=== PATIENT | male | born 1995 | race Caucasian/White ===

== ENCOUNTER → 2021-12-06 09:41 | Outpatient (BNVA) | payer OTHER, SELFPAY | PROVIDERS: Visit Provider Nurse Practitioner Psychiatric/Mental Health | DX: F11.90 Opioid use, unspecified, uncomplicated (principal); Z51.81 Encounter for therapeutic drug level monitoring | CPT/HCPCS: 80305; 99202 ==

== ENCOUNTER → 2021-12-13 09:57 | Outpatient (BNVA) | payer SELFPAY | PROVIDERS: Visit Provider Nurse Practitioner Psychiatric/Mental Health | DX: F11.20 Opioid dependence, uncomplicated (principal); Z51.81 Encounter for therapeutic drug level monitoring; Z79.899 Other long term (current) drug therapy | CPT/HCPCS: 80305; 99212 ==

== ENCOUNTER → 2021-12-20 11:03 | Outpatient (BNVA) | payer OTHER, SELFPAY | PROVIDERS: Visit Provider Nurse Practitioner Psychiatric/Mental Health | DX: F11.20 Opioid dependence, uncomplicated (principal); Z51.81 Encounter for therapeutic drug level monitoring; Z79.899 Other long term (current) drug therapy | CPT/HCPCS: 99212 ==

== ENCOUNTER → 2022-01-03 10:56 | Outpatient (BNVA) | payer MEDICAID, SELFPAY | PROVIDERS: Visit Provider Nurse Practitioner Psychiatric/Mental Health | DX: F11.20 Opioid dependence, uncomplicated (principal); Z51.81 Encounter for therapeutic drug level monitoring; Z79.899 Other long term (current) drug therapy | CPT/HCPCS: 99212 ==

== ENCOUNTER → 2022-01-22 11:02 | Outpatient (BNVA) | payer SELFPAY | PROVIDERS: Visit Provider Nurse Practitioner Psychiatric/Mental Health | DX: Z51.81 Encounter for therapeutic drug level monitoring (principal); F11.20 Opioid dependence, uncomplicated | CPT/HCPCS: 80305; 99212 ==

== ENCOUNTER → 2022-02-05 11:11 | Outpatient (BNVA) | payer SELFPAY | PROVIDERS: Visit Provider Nurse Practitioner Psychiatric/Mental Health | DX: Z51.81 Encounter for therapeutic drug level monitoring (principal); F11.20 Opioid dependence, uncomplicated | CPT/HCPCS: 80305; 99212 ==

== ENCOUNTER → 2022-02-19 11:06 | Outpatient (BNVA) | payer OTHER, SELFPAY | PROVIDERS: Visit Provider Nurse Practitioner Psychiatric/Mental Health | DX: Z51.81 Encounter for therapeutic drug level monitoring (principal); F11.20 Opioid dependence, uncomplicated | CPT/HCPCS: 80305; 99212 ==

== ENCOUNTER → 2022-03-05 11:26 | Outpatient (BNVA) | payer OTHER, SELFPAY | PROVIDERS: Visit Provider Nurse Practitioner Psychiatric/Mental Health | DX: Z51.81 Encounter for therapeutic drug level monitoring (principal); F11.20 Opioid dependence, uncomplicated | CPT/HCPCS: 80305; 99212 ==

== ENCOUNTER → 2022-03-19 10:58 | Outpatient (BNVA) | payer OTHER, SELFPAY | PROVIDERS: Visit Provider Nurse Practitioner Psychiatric/Mental Health | DX: Z51.81 Encounter for therapeutic drug level monitoring (principal); F11.20 Opioid dependence, uncomplicated | CPT/HCPCS: 99212 ==

== ENCOUNTER → 2022-04-02 11:13 | Outpatient (BNVA) | payer OTHER, SELFPAY | PROVIDERS: Visit Provider Nurse Practitioner Psychiatric/Mental Health | DX: F11.20 Opioid dependence, uncomplicated (principal) | CPT/HCPCS: 99212 ==

== ENCOUNTER → 2022-04-23 11:17 | Outpatient (BNVA) | payer OTHER, SELFPAY | PROVIDERS: Visit Provider Nurse Practitioner Psychiatric/Mental Health | DX: F11.20 Opioid dependence, uncomplicated (principal) | CPT/HCPCS: 99212 ==

== ENCOUNTER → 2022-05-15 11:17 | Outpatient (BNVA) | payer OTHER, SELFPAY | PROVIDERS: Visit Provider Nurse Practitioner Psychiatric/Mental Health | DX: F11.20 Opioid dependence, uncomplicated (principal) | CPT/HCPCS: 80305; 99212 ==

== ENCOUNTER → 2022-06-14 11:24 | Outpatient (BNVA) | payer OTHER, SELFPAY | PROVIDERS: Visit Provider Nurse Practitioner Psychiatric/Mental Health | DX: Z51.81 Encounter for therapeutic drug level monitoring (principal); F11.20 Opioid dependence, uncomplicated | CPT/HCPCS: 99212 ==

== ENCOUNTER → 2022-07-12 11:37 | Outpatient (BNVA) | payer OTHER, SELFPAY | PROVIDERS: Visit Provider Nurse Practitioner Psychiatric/Mental Health | DX: Z51.81 Encounter for therapeutic drug level monitoring (principal); F11.20 Opioid dependence, uncomplicated | CPT/HCPCS: 80305; 99212 ==

== ENCOUNTER → 2022-08-21 11:08 | Outpatient (BNVA) | payer OTHER, SELFPAY | PROVIDERS: Visit Provider Nurse Practitioner Psychiatric/Mental Health | DX: Z51.81 Encounter for therapeutic drug level monitoring (principal); F11.20 Opioid dependence, uncomplicated | CPT/HCPCS: 80305; 99212 ==

== ENCOUNTER → 2022-09-18 11:11 | Outpatient (BNVA) | payer OTHER, SELFPAY | PROVIDERS: Visit Provider Nurse Practitioner Psychiatric/Mental Health | DX: Z51.81 Encounter for therapeutic drug level monitoring (principal); F11.20 Opioid dependence, uncomplicated | CPT/HCPCS: 80305; 99212 ==

== ENCOUNTER → 2022-10-22 10:03 | Outpatient (BNVA) | payer OTHER, SELFPAY | PROVIDERS: Visit Provider Nurse Practitioner Psychiatric/Mental Health | DX: Z51.81 Encounter for therapeutic drug level monitoring (principal); F11.20 Opioid dependence, uncomplicated | CPT/HCPCS: 80305; 99212 ==

== ENCOUNTER 2022-11-29 14:56 | Outpatient (AMB) | payer OTHER, SELFPAY ==
--- NOTE | 2022-11-29 14:56 | A.OFFVIS_ITS ---
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 Required: No Allergies No Known Allergies Allergy (Unverified 11/29/22 14:58) Do you need a note to return to daycare/school/sports/work: No HPI MAT Visit HPI Details Pt presents for OUD treatment follow up Currently being prescribed Suboxone 8mg QD Denies any side effects related to medication Has moved into new apt., happy with his new place Review of Systems Const Reports as per HPI and Reports no additional complaints Physical Exam Vital Signs: Last Vital Signs Pulse 76 11/29/22 15:04 BP 126/82 11/29/22 15:04 Pulse Ox 97 11/29/22 15:04 Oxygen Delivery Method Room Air 11/29/22 15:04 Const General: cooperative, healthy appearing and no acute distress Skin General skin exam: no rashes or lesions noted Psych Appearance: well kempt Speech and movement: Clear speech present Thought process: Normal thought process present Thought content: Normal thought content present Insight: Good insight present (Psych) Assessment & Plan Assessment & Plan (1) Opioid use disorder: Code(s): F11.90 - Opioid use, unspecified, uncomplicated Plan: * continue suboxone at current dose * relapse prevention discussion * lynette stevens 4 weeks Orders: Orders AMB 14 Panel Urine Drug Screen 11/29/22 Z51.81 - Encounter for therapeutic drug level monitoring Medications: Refilled buprenorphine-naloxone 8-2 mg (Suboxone) 1 film sublingual DAILY 30 ea 0RF Coding Level of Care Code Est Pt Level 3 (23324) Diagnoses Opioid use disorder F11.90
[2022-11-29 15:04] VITALS: BP 126/82; PULSE 76; O2SAT 97
== END 2022-11-29 15:31 | disposition home or self-care (01) ==
LOC: HO.HCC 14:56
PROVIDERS: Visit Provider Nurse Practitioner Psychiatric/Mental Health
DX: Z51.81 Encounter for therapeutic drug level monitoring (principal)
CPT/HCPCS: 99213

== ENCOUNTER → 2022-11-29 14:56 | Outpatient (BNVA) | payer OTHER, SELFPAY | PROVIDERS: Visit Provider Nurse Practitioner Psychiatric/Mental Health | DX: Z51.81 Encounter for therapeutic drug level monitoring (principal); F11.20 Opioid dependence, uncomplicated | CPT/HCPCS: 80305; 99212 ==

== ENCOUNTER 2023-01-14 10:55 | Outpatient (AMB) | payer OTHER, SELFPAY ==
--- NOTE | 2023-01-14 11:05 | MHC.OFFVIS ---
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 Doing well with current dose. Patient reflecting on how his children are doing in school--he feels positive about the improvement in their behavior. 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 Review of Systems Const Reports as per HPI and Reports no additional complaints Physical Exam Vital Signs: Last Vital Signs Pulse 74 01/14/23 11:13 BP 128/70 01/14/23 11:13 Pulse Ox 96 01/14/23 11:13 Oxygen Delivery Method Room Air 01/14/23 11:13 Const General: cooperative, healthy appearing and no acute distress Skin General skin exam: no rashes or lesions noted Psych Appearance: well kempt Speech and movement: Clear speech present Thought process: Normal thought process present Thought content: Normal thought content present Insight: Good insight present (Psych) Results AMB 14 Panel Urine Drug Screen Urine Marijuana (THC) Positive Last Edit by Gabriella Paulino CMA on 01/14/23 11:14 Urine Cocaine Negative Last Edit by Gabriella Paulino CMA on 01/14/23 11:14 Urine Morphine Negative Last Edit by Gabriella Paulino CMA on 01/14/23 11:14 Urine Methamphetamine Negative Last Edit by Gabriella Paulino CMA on 01/14/23 11:14 Urine Amphetamine Negative Last Edit by Gabriella Paulino CMA on 01/14/23 11:14 Urine Benzodiazepine Negative Last Edit by Gabriella Paulino CMA on 01/14/23 11:14 Urine Barbiturates Negative Last Edit by Gabriella Paulino CMA on 01/14/23 11:14 Urine Methadone Negative Last Edit by Gabriella Paulino CMA on 01/14/23 11:14 Urine Buprenorphine Positive Last Edit by Gabriella Paulino CMA on 01/14/23 11:14 Urine Tricyclic Antidepressant Negative Last Edit by Gabriella Paulino CMA on 01/14/23 11:14 Urine MDMA Negative Last Edit by Gabriella Paulino CMA on 01/14/23 11:14 Urine Oxycodone Negative Last Edit by Gabriella Paulino CMA on 01/14/23 11:14 Urine Phencyclidine Negative Last Edit by Gabriella Paulino CMA on 01/14/23 11:14 Urine Propoxyphene Negative Last Edit by Gabriella Paulino CMA on 01/14/23 11:14 Results Reviewed Results Reviewed: Laboratory Last Values POC Urine Buprenorphine Positive 01/14/23 11:08 POC Urine Morphine Negative 01/14/23 11:08 POC Urine Oxycodone Negative 01/14/23 11:08 POC Urine Methadone Negative 01/14/23 11:08 POC Urine Propoxyphene Negative 01/14/23 11:08 POC Urine Barbiturates Negative 01/14/23 11:08 POC U Tricyclic Antidpr Negative 01/14/23 11:08 POC Urine PCP Negative 01/14/23 11:08 POC Ur Amphetamines Negative 01/14/23 11:08 POC Ur Methamphetamine Negative 01/14/23 11:08 POC Urine MDMA Negative 01/14/23 11:08 POC Ur Benzodiazepine Negative 01/14/23 11:08 POC Urine Cocaine Negative 01/14/23 11:08 POC Ur Marijuana (THC) Positive 01/14/23 11:08 Assessment & Plan Assessment & Plan (1) Opioid use disorder: Code(s): F11.90 - Opioid use, unspecified, uncomplicated Plan: continue suboxone at current dose relapse prevention discussion follow up 6 weeks Orders: Orders AMB 14 Panel Urine Drug Screen Today Z51.81 - Encounter for therapeutic drug level monitoring Medications: Refilled buprenorphine-naloxone 8-2 mg (Suboxone) 1 film sublingual DAILY 22 ea 1RF Discontinued prazosin Discontinued Reason: Patient no longer taking 1 mg PO BEDTIME 30 caps 3RF hydroxyzine HCl Discontinued Reason: Patient no longer taking 50 mg PO BEDTIME 30 tabs 3RF Coding Level of Care Code Est Pt Level 3 (37877) Diagnoses Opioid use disorder F11.90
[2023-01-14 11:13] VITALS: BP 128/70; PULSE 74; O2SAT 96
== END 2023-01-14 11:30 | disposition home or self-care (01) ==
LOC: HO.HCC 10:56
PROVIDERS: Visit Provider Nurse Practitioner Psychiatric/Mental Health
DX: F11.90 Opioid use, unspecified, uncomplicated (principal); Z51.81 Encounter for therapeutic drug level monitoring
CPT/HCPCS: 99213

== ENCOUNTER → 2023-01-14 10:55 | Outpatient (BNVA) | payer OTHER, SELFPAY | PROVIDERS: Visit Provider Nurse Practitioner Psychiatric/Mental Health | DX: F11.20 Opioid dependence, uncomplicated (principal) | CPT/HCPCS: 80305; 99212 ==

== ENCOUNTER 2023-03-01 09:44 | Outpatient (AMB) | payer OTHER, SELFPAY ==
--- NOTE | 2023-03-01 09:56 | A.OFFVIS_ITS ---
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 Required: No Allergies No Known Allergies Allergy (Unverified 03/01/23 10:00) Do you need a note to return to daycare/school/sports/work: No HPI MAT Visit HPI Details Patient presents for follow up Currently prescribed suboxone 8mg daily Started GED classes at [employer] [employer] 4 days per week Enjoying it, doing well with recovery Review of Systems Const Reports as per HPI and Reports no additional complaints Physical Exam Vital Signs: Last Vital Signs Pulse 77 03/01/23 09:59 BP 124/78 03/01/23 09:59 Pulse Ox 98 03/01/23 09:59 Oxygen Delivery Method Room Air 03/01/23 09:59 Const General: cooperative, healthy appearing and no acute distress Skin General skin exam: no rashes or lesions noted Psych Appearance: well kempt Speech and movement: Clear speech present Thought process: Normal thought process present Thought content: Normal thought content present Insight: Good insight present (Psych) Assessment & Plan Assessment & Plan (1) Opioid use disorder: Code(s): F11.90 - Opioid use, unspecified, uncomplicated Plan: * continue suboxone at current dose * relapse prevention discussion * follow up 6 weeks Coding Level of Care Code Est Pt Level 3 (97507) Diagnoses Opioid use disorder F11.90
[2023-03-01 09:59] VITALS: BP 124/78; PULSE 77; O2SAT 98
== END 2023-03-01 10:28 | disposition home or self-care (01) ==
PROVIDERS: Visit Provider Nurse Practitioner Psychiatric/Mental Health
DX: F11.90 Opioid use, unspecified, uncomplicated (principal)
CPT/HCPCS: 99213

== ENCOUNTER → 2023-03-01 09:44 | Outpatient (BNVA) | payer OTHER, SELFPAY | PROVIDERS: Visit Provider Nurse Practitioner Psychiatric/Mental Health | DX: F11.20 Opioid dependence, uncomplicated (principal); Z51.81 Encounter for therapeutic drug level monitoring; Z79.899 Other long term (current) drug therapy | CPT/HCPCS: 99212 ==

== ENCOUNTER 2023-04-19 10:38 | Outpatient (AMB) | payer OTHER, SELFPAY ==
--- NOTE | 2023-04-19 10:45 | A.OFFVIS_ITS ---
Intake Vital Signs 04/19/23 10:51 BP 110/72 Blood Pressure Location Lt radial Position Sitting Pulse 90 Pulse Source Pulse Oximeter Pulse Oximetry (%) 97 Oxygen Delivery Method Room Air Intake Visit Reasons: MAT Visit Intake Note: the patient presents for a mat visit Fleece Tier Required: No Allergies No Known Allergies Allergy (Unverified 04/19/23 10:45) Do you need a note to return to daycare/school/sports/work: No HPI MAT Visit HPI Details Patient presents for OUD treatment follow up Started school in February. Doing well in his classes. States Reporting increasing anxiety, depression and nightmares He feels this time of year is challenging due to many family members and friends that have passed over time Requesting to restart sertraline and clonidine [facility] Medical History (Updated 04/19/23 @ 14:41 by Roxann Zayas CNP) Opioid use disorder Review of Systems Const Reports as per HPI and Reports difficulty sleeping Physical Exam Vital Signs: Last Vital Signs Pulse 90 04/19/23 10:51 BP 110/72 04/19/23 10:51 Pulse Ox 97 04/19/23 10:51 Oxygen Delivery Method Room Air 04/19/23 10:51 Const General: cooperative and healthy appearing Assessment & Plan Assessment & Plan (1) Opioid use disorder, severe, in sustained remission: Code(s): F11.21 - Opioid dependence, in remission Plan: * continue suboxone at current dose * clonidine 1/2 tab during the day and one tab at bedtime * sertraline 25mg daily for one week then increase to one tab daily * lynette stevens 6 weeks * RN to follow up in 2 weeks via phone regarding medication changes Medications: New clonidine HCl 0.1 mg orally take 1/2 tab in the morning and a full tab in evening; 45 tabs 0RF sertraline take 1/2 tab daily for one week then increase to one full tab daily 50 mg PO DAILY 30 tabs 0RF buprenorphine-naloxone 8-2 mg (Suboxone) 1 film buccal DAILY 22 ea 1RF Discontinued buprenorphine-naloxone 8-2 mg (Suboxone) Discontinued Reason: Duplicate 1 film sublingual DAILY 22 ea 1RF Coding Level of Care Code Est Pt Level 4 (63596) Diagnoses Opioid use disorder, severe, in sustained remission F11.21
[2023-04-19 10:51] VITALS: BP 110/72; PULSE 90; O2SAT 97
== END 2023-04-19 11:47 | disposition home or self-care (01) ==
PROVIDERS: Visit Provider Nurse Practitioner Psychiatric/Mental Health
DX: F11.21 Opioid dependence, in remission (principal)
CPT/HCPCS: 99214

== ENCOUNTER → 2023-04-19 10:38 | Outpatient (BNVA) | payer OTHER, SELFPAY | PROVIDERS: Visit Provider Nurse Practitioner Psychiatric/Mental Health | DX: F11.21 Opioid dependence, in remission (principal) | CPT/HCPCS: 99212 ==

== ENCOUNTER 2023-06-28 13:58 | Outpatient (AMB) | payer OTHER, SELFPAY ==
[2023-06-28 14:03] VITALS: BP 145/90; PULSE 100; O2SAT 99
--- NOTE | 2023-06-28 14:03 | A.OFFVISCC_ITS ---
Intake Vital Signs 06/28/23 14:03 BP 145/90 H Blood Pressure Location Lt brachial Position Sitting Pulse 100 Pulse Oximetry (%) 99 Oxygen Delivery Method Room Air Intake Visit Reasons: MAT Visit Allergies No Known Allergies Allergy (Unverified 04/19/23 10:45) HPI MAT Visit HPI Details Patient presents for follow up Missed last appt Reports things are going well, still taking all medications and requesting refills today [facility] Medical History (Updated 04/19/23 @ 14:41 by Roxann Zayas CNP) Opioid use disorder Review of Systems Const Reports as per HPI and Reports no additional complaints Physical Exam Vital Signs: Last Vital Signs Pulse 100 06/28/23 14:03 BP 145/90 H 06/28/23 14:03 Pulse Ox 99 06/28/23 14:03 Oxygen Delivery Method Room Air 06/28/23 14:03 Const General: cooperative and healthy appearing Assessment & Plan Assessment & Plan (1) Opioid use disorder, severe, in sustained remission: Code(s): F11.21 - Opioid dependence, in remission Plan: * continue suboxone at current dose * clonidine 1/2 tab during the day and one tab at bedtime * sertraline 25mg daily for one week then increase to one tab daily * follow up 2 weeks Medications: Refilled clonidine HCl 0.1 mg orally take 1/2 tab in the morning and a full tab in evening; 45 tabs 3RF buprenorphine-naloxone 8-2 mg (Suboxone) 1 film buccal DAILY 22 ea 0RF Coding Level of Care Code Est Pt Level 3 (31755) Diagnoses Opioid use disorder, severe, in sustained remission F11.21
== END 2023-06-28 14:33 | disposition home or self-care (01) ==
PROVIDERS: Visit Provider Nurse Practitioner Psychiatric/Mental Health
DX: F11.21 Opioid dependence, in remission (principal)
CPT/HCPCS: 99213

== ENCOUNTER → 2023-06-28 13:58 | Outpatient (BNVA) | payer OTHER, SELFPAY | PROVIDERS: Visit Provider Nurse Practitioner Psychiatric/Mental Health | DX: F11.21 Opioid dependence, in remission (principal) | CPT/HCPCS: 99212 ==

== ENCOUNTER 2023-08-12 09:51 | Outpatient (AMB) | payer OTHER, SELFPAY ==
--- NOTE | 2023-08-12 09:52 | A.OFFVISCC_ITS ---
Intake Vital Signs 08/12/23 09:54 Blood Pressure Location Lt brachial Position Sitting Respiration 20 Pulse 88 Pulse Source Pulse Oximeter Pulse Oximetry (%) 98 Oxygen Delivery Method Room Air Intake Visit Reasons: MAT Allergies No Known Allergies Allergy (Unverified 04/19/23 10:45) HPI MAT HPI Details Patient presents for follow up Lost insurance for a month--all set now No issues related to recovery--was able to obtain films Will be moving into his own apt this week. Briefly shared some relationship issues. Feels grounded in his recovery--strong network. [facility] Medical History (Updated 04/19/23 @ 14:41 by Roxann Zayas CNP) Opioid use disorder Review of Systems Const Reports as per HPI Physical Exam Vital Signs: Last Vital Signs Pulse 88 08/12/23 09:54 Resp 20 08/12/23 09:54 Pulse Ox 98 08/12/23 09:54 Oxygen Delivery Method Room Air 08/12/23 09:54 Const General: cooperative and healthy appearing Assessment & Plan Assessment & Plan (1) Opioid use disorder, severe, in sustained remission: Code(s): F11.21 - Opioid dependence, in remission Plan: * continue suboxone at current dose * sertraline and clonidine refilled Medications: Refilled sertraline 50 mg PO DAILY 90 tabs 0RF clonidine HCl 0.1 mg orally take 1/2 tab in the morning and a full tab in evening; 45 tabs 3RF buprenorphine-naloxone 8-2 mg (Suboxone) 1 film buccal DAILY 30 ea 0RF Coding Level of Care Code Est Pt Level 3 (33003) Diagnoses Opioid use disorder, severe, in sustained remission F11.21
[2023-08-12 09:54] VITALS: PULSE 88; RESP 20; O2SAT 98
== END 2023-08-12 10:16 | disposition home or self-care (01) ==
PROVIDERS: Visit Provider Nurse Practitioner Psychiatric/Mental Health
DX: F11.21 Opioid dependence, in remission (principal)
CPT/HCPCS: 99213

== ENCOUNTER → 2023-08-12 09:51 | Outpatient (BNVA) | payer OTHER, SELFPAY | PROVIDERS: Visit Provider Nurse Practitioner Psychiatric/Mental Health | DX: F11.21 Opioid dependence, in remission (principal); Z79.899 Other long term (current) drug therapy; Z51.81 Encounter for therapeutic drug level monitoring | CPT/HCPCS: 99212 ==

== ENCOUNTER 2023-09-09 09:48 | Outpatient (AMB) | payer OTHER, SELFPAY ==
[2023-09-09 09:48] VITALS: BP 148/94; PULSE 81; O2SAT 97
--- NOTE | 2023-09-09 09:48 | A.OFFVISCC_ITS ---
Vital Signs 09/09/23 09:48 BP 148/94 H Blood Pressure Location Lt brachial Position Sitting Pulse 81 Pulse Source Pulse Oximeter Pulse Oximetry (%) 97 Oxygen Delivery Method Room Air Intake Visit Reasons: MAT Allergies No Known Allergies Allergy (Unverified 04/19/23 10:45) HPI HPI MAT: Details: Pt presents for OUD treatment follow up Currently being prescribed Suboxone 8mg QD Denies any side effects related to medication Still living in his own apt. Spending a lot of time outside with his dog Having difficulty finding work due to open cases Sleep and anxiety improved with sertraline and clonidine [facility] Medical History (Updated 04/19/23 @ 14:41 by Roxann Zayas CNP) Opioid use disorder Review of Systems Const Reports as per HPI Physical Exam Vital Signs: Last Vital Signs Pulse 81 09/09/23 09:48 BP 148/94 H 09/09/23 09:48 Pulse Ox 97 09/09/23 09:48 Oxygen Delivery Method Room Air 09/09/23 09:48 Const General: cooperative and healthy appearing Assessment & Plan Assessment & Plan (1) Opioid use disorder, severe, in sustained remission: Code(s): F11.21 - Opioid dependence, in remission Category: Medical Plan: * continue suboxone at current dose * follow up 4 weeks * relapse prevention discussion Medications: Refilled buprenorphine-naloxone 8-2 mg (Suboxone) 1 film buccal DAILY 30 ea 0RF
== END 2023-09-09 10:13 | disposition home or self-care (01) ==
PROVIDERS: Visit Provider Nurse Practitioner Psychiatric/Mental Health
DX: F11.21 Opioid dependence, in remission (principal)
CPT/HCPCS: 99213

== ENCOUNTER → 2023-09-09 09:48 | Outpatient (BNVA) | payer OTHER, SELFPAY | PROVIDERS: Visit Provider Nurse Practitioner Psychiatric/Mental Health | DX: F11.21 Opioid dependence, in remission (principal) | CPT/HCPCS: 99212 ==

== ENCOUNTER 2023-11-20 13:56 | Outpatient (AMB) | payer OTHER, SELFPAY ==
--- NOTE | 2023-11-20 14:05 | A.OFFVISCC_ITS ---
Vital Signs 11/20/23 14:09 BP 140/70 H Blood Pressure Location Lt brachial Position Sitting Respiration 20 Pulse 85 Pulse Source Pulse Oximeter Pulse Oximetry (%) 98 Oxygen Delivery Method Room Air Intake Visit Reasons: MAT Visit Allergies No Known Allergies Allergy (Unverified 04/19/23 10:45) HPI HPI MAT Visit: Details: Patient presents for follow up Currently prescribed Suboxone 8mg daily Denies any issues related to recovery ran out of sertraline and clonidine earlier this month no issues related to mood. [facility] Medical History (Updated 04/19/23 @ 14:41 by Roxann Zayas CNP) Opioid use disorder Review of Systems Const Reports as per HPI and Reports no additional complaints Physical Exam Vital Signs: Last Vital Signs Pulse 85 11/20/23 14:09 Resp 20 11/20/23 14:09 BP 140/70 H 11/20/23 14:09 Pulse Ox 98 11/20/23 14:09 Oxygen Delivery Method Room Air 11/20/23 14:09 Const General: cooperative and healthy appearing Assessment & Plan Assessment & Plan (1) Opioid use disorder, severe, in sustained remission: Code(s): F11.21 - Opioid dependence, in remission Category: Medical Plan: * continue suboxone at current dose * relapse prevention discussion * follow up 2 months * medications refilled Medications: Refilled sertraline 50 mg PO DAILY 90 tabs 3RF clonidine HCl 0.1 mg orally take 1/2 tab in the morning and a full tab in evening; 45 tabs 3RF Discontinued ondansetron HCl Discontinued Reason: Patient Completed Course 4 mg PO DAILY 14 days PRN 14 tabs 0RF nausea and vomiting
[2023-11-20 14:09] VITALS: BP 140/70; PULSE 85; RESP 20; O2SAT 98
== END 2023-11-20 14:26 | disposition home or self-care (01) ==
PROVIDERS: Visit Provider Nurse Practitioner Psychiatric/Mental Health
DX: F11.21 Opioid dependence, in remission (principal)
CPT/HCPCS: 99214

== ENCOUNTER → 2023-11-20 13:56 | Outpatient (BNVA) | payer OTHER, SELFPAY | PROVIDERS: Visit Provider Nurse Practitioner Psychiatric/Mental Health | DX: F11.21 Opioid dependence, in remission (principal) | CPT/HCPCS: 99212 ==

== ENCOUNTER 2024-01-31 11:25 | Outpatient (AMB) | payer OTHER, SELFPAY ==
--- NOTE | 2024-01-31 11:44 | A.OFFVISCC_ITS ---
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 Panel Today Z79.899 - Other terminal operator (current) drug therapy Medications: Refilled buprenorphine-naloxone 8-2 mg (Suboxone) 1 film buccal DAILY 30 ea 1RF
== END 2024-01-31 13:14 | disposition home or self-care (01) ==
PROVIDERS: Visit Provider Nurse Practitioner Psychiatric/Mental Health
DX: F11.21 Opioid dependence, in remission (principal)
CPT/HCPCS: 99213

== ENCOUNTER 2024-01-31 11:25 | Outpatient (REF) | payer OTHER, SELFPAY ==
[2024-01-31 13:12] LABS: Alanine Aminotransferase 27 U/L (0-40); Albumin Level 4.5 g/dL (3.5-5.0); Alkaline Phosphatase 81 U/L (39-117); Anion Gap 11 (12-20); Aspartate Amino Transferase 21 U/L (5-37); Bilirubin Total 0.4 mg/dL (0.0-1.0); Blood Urea Nitrogen 13 mg/dL (9-16); Calcium 10.4 mg/dL (8.4-10.2); Carbon Dioxide 32 mmol/L (22-29); Chloride 102 mmol/L (96-108); Estimated Glomerular Filt Rate > 60; Glucose Random 89 mg/dL (60-115); Potassium 4.4 mmol/L (3.3-5.1); Sodium 141 mmol/L (135-145); Total Protein 7.4 g/dL (6.5-8.0)
== END 2024-01-31 11:26 | disposition home or self-care (01) ==
LOC: HO.LAB 11:25
PROVIDERS: Visit Provider Nurse Practitioner Psychiatric/Mental Health
DX: Z79.899 Other long term (current) drug therapy (principal)
CPT/HCPCS: 36415; 80053; 99212

== ENCOUNTER 2024-03-13 11:22 | Outpatient (AMB) | payer OTHER, SELFPAY ==
--- NOTE | 2024-03-13 11:29 | A.OFFVISCC_ITS ---
Vital Signs 03/15/24 16:38 BP 140/80 H Blood Pressure Location Rt brachial Position Sitting Intake Visit Reasons: MAT Allergies No Known Allergies Allergy (Unverified 04/19/23 10:45) HPI HPI MAT: Details: Patient presents for follow up Currently prescribed Suboxone 8mg daily Tolerating current dose Sertraline 50mg daily Reports increase in dose due to issue in his family Taking 100mg daily Clonidine 1/2 tab in morning and full tab in evening Sleep improved with consistent dosing of medication and Discussed BP--encouraged patient to follow up with primary care Denies any headache, blurred vision, dizziness Review of Systems Const Reports as per HPI Physical Exam Const General: cooperative and healthy appearing Assessment & Plan Assessment & Plan (1) Opioid use disorder, severe, in sustained remission: Code(s): F11.21 - Opioid dependence, in remission Category: Medical Plan: * continue suboxone at current dose * relapse prevention discussion * follow up 6 weeks (2) Generalized anxiety disorder: Code(s): F41.1 - Generalized anxiety disorder Category: Medical Plan: * sertraline increase to 100mg daily * continue clonidine Medications: New sertraline (Zoloft) 100 mg PO DAILY 90 tabs 3RF Refilled clonidine HCl 0.1 mg orally take 1/2 tab in the morning and a full tab in evening; 45 tabs 3RF Discontinued sertraline Discontinued Reason: Doctor's Order 50 mg PO DAILY 90 tabs 3RF [facility] Medical History (Updated 03/15/24 @ 16:43 by Roxann Zayas CNP) Opioid use disorder
[2024-03-15 16:38] VITALS: BP 140/80
== END 2024-03-13 11:50 | disposition home or self-care (01) ==
PROVIDERS: Visit Provider Nurse Practitioner Psychiatric/Mental Health
DX: F11.21 Opioid dependence, in remission (principal); F41.1 Generalized anxiety disorder
CPT/HCPCS: 99214

== ENCOUNTER → 2024-03-13 11:22 | Outpatient (BNVA) | payer OTHER, SELFPAY | PROVIDERS: Visit Provider Nurse Practitioner Psychiatric/Mental Health | DX: F11.21 Opioid dependence, in remission (principal); F41.1 Generalized anxiety disorder; Z79.899 Other long term (current) drug therapy | CPT/HCPCS: 99212 ==

== ENCOUNTER 2024-06-01 12:53 | Outpatient (AMB) | payer OTHER, SELFPAY ==
--- NOTE | 2024-06-01 12:53 | A.OFFVISCC_ITS ---
Intake Visit Reasons: telehealth MAT Allergies No Known Allergies Allergy (Unverified 04/19/23 10:45) HPI HPI telehealth MAT: Details: Patient presents for follow up via telehealth License is currently suspended so he can't make it to the office Currently prescribed suboxone 8mg daily Doing well with recovery No longer with the mother of his children Mood stable with Sertraline Planning to see primary care provider soon--needs to re-establish care with [facility] Review of Systems Const Reports as per HPI and Reports no additional complaints Telehealth Telehealth Telehealth Platform: Telephone Location of provider rendering services: practice address Location of patient: address on file Patient Identification confirmed using: Name, : Yes Telehealth method: voice only Patient verbally consented to treatment: Yes Patient verbally consented to billing insurance company: Yes Minutes spent on Phone/Video with Pt.: 20 [facility] Medical History (Updated 03/15/24 @ 16:43 by Roxann Zayas CNP) Opioid use disorder Assessment & Plan Assessment & Plan (1) Opioid use disorder, severe, in sustained remission: Code(s): F11.21 - Opioid dependence, in remission Category: Medical Plan: * continue suboxone at current dose * follow up 2 months (2) Generalized anxiety disorder: Code(s): F41.1 - Generalized anxiety disorder Category: Medical Plan: * continue sertraline * clonidine PRN
== END 2024-06-01 13:51 | disposition home or self-care (01) ==
PROVIDERS: Visit Provider Nurse Practitioner Psychiatric/Mental Health
DX: F11.21 Opioid dependence, in remission (principal); F41.1 Generalized anxiety disorder
CPT/HCPCS: 99214

== ENCOUNTER 2024-09-25 15:24 | Outpatient (AMB) | payer OTHER, SELFPAY ==
--- NOTE | 2024-09-25 15:23 | MHC.OFFVIS ---
Vital Signs 09/25/24 15:29 Pulse 95 Pulse Source Pulse Oximeter Pulse Oximetry (%) 97 Intake Visit Reasons: MAT Allergies No Known Allergies Allergy (Verified 09/25/24 15:29) HPI HPI MAT: Details: He feels well taking Suboxone daily He has no complaints. [facility] Medical History Opioid use disorder Review of Systems Const All systems reviewed & are unremarkable except as noted in HPI and below Physical Exam Vital Signs: Last Vital Signs Pulse 95 09/25/24 15:29 Pulse Ox 97 09/25/24 15:29 Const General: cooperative Results AMB 14 Panel Urine Drug Screen Urine Marijuana (THC) Positive Last Edit by Michi Sanderson CMA on 09/25/24 15:30 Urine Cocaine Negative Last Edit by Michi Sanderson CMA on 09/25/24 15:30 Urine Morphine Negative Last Edit by Michi Sanderson CMA on 09/25/24 15:30 Urine Methamphetamine Negative Last Edit by Michi Sanderson CMA on 09/25/24 15:30 Urine Amphetamine Negative Last Edit by Michi Sanderson CMA on 09/25/24 15:30 Urine Benzodiazepine Negative Last Edit by Michi Sanderson CMA on 09/25/24 15:30 Urine Barbiturates Negative Last Edit by Michi Sanderson CMA on 09/25/24 15:30 Urine Methadone Negative Last Edit by Michi Sanderson CMA on 09/25/24 15:30 Urine Buprenorphine Positive Last Edit by Michi Sanderson CMA on 09/25/24 15:30 Urine Tricyclic Antidepressant Negative Last Edit by Michi Sanderson CMA on 09/25/24 15:30 Urine MDMA Negative Last Edit by Michi Sanderson CMA on 09/25/24 15:30 Urine Oxycodone Negative Last Edit by Michi Sanderson CMA on 09/25/24 15:30 Urine Phencyclidine Negative Last Edit by Michi Sanderson CMA on 09/25/24 15:30 Urine Propoxyphene Negative Last Edit by Michi Sanderson CMA on 09/25/24 15:30 Results Reviewed Results Reviewed: Laboratory Last Values POC Urine Buprenorphine Positive 09/25/24 15:24 POC Urine Morphine Negative 09/25/24 15:24 POC Urine Oxycodone Negative 09/25/24 15:24 POC Urine Methadone Negative 09/25/24 15:24 POC Urine Propoxyphene Negative 09/25/24 15:24 POC Urine Barbiturates Negative 09/25/24 15:24 POC U Tricyclic Antidpr Negative 09/25/24 15:24 POC Urine PCP Negative 09/25/24 15:24 POC Ur Amphetamines Negative 09/25/24 15:24 POC Ur Methamphetamine Negative 09/25/24 15:24 POC Urine MDMA Negative 09/25/24 15:24 POC Ur Benzodiazepine Negative 09/25/24 15:24 POC Urine Cocaine Negative 09/25/24 15:24 POC Ur Marijuana (THC) Positive 09/25/24 15:24 Assessment & Plan Assessment & Plan (1) Opioid use disorder, severe, in sustained remission: Comment: He is doing well Code(s): F11.21 - Opioid dependence, in remission Category: Medical Plan: Continue current Suboxone. See as scheduled. Orders: Orders AMB 14 Panel Urine Drug Screen 09/25/24 Z51.81 - Encounter for therapeutic drug level monitoring Medications: New buprenorphine-naloxone 8-2 mg (Suboxone) 1 film sublingual DAILY 30 days 30 ea 2RF Coding Level of Care Code Est Pt Level 3 (81115) Diagnoses Opioid use disorder, severe, in sustained remission F11.21
[2024-09-25 15:29] VITALS: PULSE 95; O2SAT 97
== END 2024-09-25 16:08 | disposition home or self-care (01) ==
LOC: HO.HCC 15:24
PROVIDERS: Visit Provider Internal Medicine
DX: F11.21 Opioid dependence, in remission (principal)
CPT/HCPCS: 99213

== ENCOUNTER → 2024-09-25 15:24 | Outpatient (BNVA) | payer OTHER, SELFPAY | PROVIDERS: Visit Provider Internal Medicine | DX: Z51.81 Encounter for therapeutic drug level monitoring (principal); F11.21 Opioid dependence, in remission | CPT/HCPCS: 80307; 99212 ==

== ENCOUNTER 2024-12-25 15:50 | Outpatient (AMB) | payer OTHER, SELFPAY ==
[2024-12-25 15:55] VITALS: PULSE 105; O2SAT 98; BMI 28.3
--- NOTE | 2024-12-25 15:55 | MHC.OFFVIS ---
Vital Signs 12/25/24 15:55 Height 5 ft 7 in Weight 181 lb BMI 28.3 Pulse 105 H Pulse Source Pulse Oximeter Pulse Oximetry (%) 98 Oxygen Delivery Method Room Air Intake Visit Reasons: MAT Allergies No Known Allergies Allergy (Verified 12/25/24 15:55) HPI HPI MAT: Details: He is doing well. He has no complaints [facility] Medical History Opioid use disorder Review of Systems Const All systems reviewed & are unremarkable except as noted in HPI and below Physical Exam Vital Signs: Last Vital Signs Pulse 105 H 12/25/24 15:55 Pulse Ox 98 12/25/24 15:55 Oxygen Delivery Method Room Air 12/25/24 15:55 BMI result Body Mass Index 28.3 Assessment & Plan Assessment & Plan (1) Opioid use disorder, severe, in sustained remission: Comment: He is doing well Code(s): F11.21 - Opioid dependence, in remission Category: Medical Plan: Continue current plan See as scheduled. Medications: New buprenorphine-naloxone 8-2 mg (Suboxone) 1 film sublingual DAILY 30 ea 2RF 30 days Coding Level of Care Code Est Pt Level 3 (69036) Diagnoses Opioid use disorder, severe, in sustained remission F11.21
== END 2024-12-25 16:11 | disposition home or self-care (01) ==
LOC: HO.HCC 15:51
PROVIDERS: Visit Provider Internal Medicine
DX: F11.21 Opioid dependence, in remission (principal)
CPT/HCPCS: 99213

== ENCOUNTER → 2024-12-25 15:50 | Outpatient (BNVA) | payer OTHER, SELFPAY | PROVIDERS: Visit Provider Internal Medicine | DX: F11.21 Opioid dependence, in remission (principal) | CPT/HCPCS: 99212 ==

== ENCOUNTER 2025-04-05 14:26 | Outpatient (AMB) | payer OTHER, SELFPAY ==
[2025-04-05 14:33] VITALS: BP 110/68; PULSE 100; O2SAT 96
--- NOTE | 2025-04-05 14:33 | A.OFFVIS_ITS ---
Vital Signs 04/05/25 14:33 BP 110/68 Pulse 100 Pulse Oximetry (%) 96 Intake Visit Reasons: MAT Allergies No Known Allergies Allergy (Verified 04/05/25 14:33) HPI Comments Details: History of Present Illness The patient is a 29 year old male presenting for a follow-up on his opioid use disorder. He is currently prescribed buprenorphine 8/2 mg film, which he takes daily. Review of Systems - Constitutional: Denies any complaints. - Gastrointestinal: Denies constipation. - Psychiatric: Denies depression. Physical Exam - General: Vital signs are stable. Results Plan Patient was informed and verbally consented to the use of an ambient scribe for clinic note documentation during this visit. 1. Opioid use, unspecified, uncomplicated F11.90 The patient will continue his current regimen of Suboxone (buprenorphine/naloxone) 8/2 mg daily. He will follow up as scheduled. Discussion Notes I discussed the plan to continue his current medication for opioid use disorder. I advised him to return for follow-up as scheduled. Medical Decision Making The patient is a 29-year-old male managing his opioid use disorder with buprenorphine 8/2 mg film daily. He is stable, with no complaints, constipation, or depression, and his vital signs are stable. Given his stability and asymptomatic status, the plan is to continue the current Suboxone regimen and maintain scheduled follow-ups. Patient Instructions - Continue taking your Suboxone 8/2 mg film every day as prescribed. - Please come back for your next appointment as scheduled. [facility] Medical History Opioid use disorder Physical Exam Vital Signs: Last Vital Signs Pulse 100 04/05/25 14:33 BP 110/68 04/05/25 14:33 Pulse Ox 96 04/05/25 14:33 Assessment & Plan Assessment & Plan (1) Opioid use disorder, severe, in sustained remission: Comment: He is doing well Code(s): F11.21 - Opioid dependence, in remission Category: Medical Plan meds as per script Medications: New buprenorphine-naloxone 8-2 mg (Suboxone) 1 film sublingual DAILY 30 ea 2RF 30 days Coding Level of Care Code Est Pt Level 3 (36367) Diagnoses Opioid use disorder, severe, in sustained remission F11.21
--- OUTSIDE RECORDS SUMMARY | 2025-04-05 17:46 | XMS_ITS | Encounter Summary ---
Author Organization [employer] Address [address] [facility] [address] [place] [address] Care Team Providers Care Concrete Gun Operator Name Role Phone Leonor Bills DO Primary Care Provider [phone] Reason for Visit * Reason Onset Date Comments Appointment Request 03/25/2025 Encounter Details Date Type Department Care Team ([facility] st Contact Info) Description 03/25/2025 Telephone [facility] [address] [place] [address] Leonor Bills DO [address] [place] [address] Appointment Request Social History Tobacco Use Types Packs/Day Years Used Date Smoking Tobacco: Former Cigarettes Smokeless Tobacco: Never Alcohol Use Standard Drinks/Week Comments Not Currently 0 (1 standard drink = 0.6 oz pur e alcohol) Depression Answer Date Recorded Patient Health Questionnaire-9 Score 18 03/08/2025 Patient Health Questionnaire-9 Score 18 03/08/2025 Last PHQ-9: Questionnaire Data Not on file 1 05/08/2024 Depression Answer Date Recorded Patient Health Questionnaire-2 Score 4 03/08/2025 Sex and Gender Information Value Date Recorded Sex Assigned at Male 03/05/2022 10:15 AM EDT Legal Sex Male 10:15 AM EDT Gender Identity Male 03/04/2025 12:12 PM EDT Sexual Orientation Don't know 03/04/2025 12 :12 PM EDT documented as of this encounter Miscellaneous Notes * Telephone Encounter - Shari Womackzquez - 03/25/2025 11:17 AM EST Tc from pt requesting to reschedule appointment from 03/25. Pathology Assistant not able to fine an appointment. Please contact pt a [phone] documented in this encounter Plan of Treatment Not on file documented as of this encounter Visit Diagnoses Not on filedocumented in this encounter Additional Health Concerns Assessment Noted Time PHQ-9 Depression Total Score: 18 025 9:50 AM EST documented as of this encounter Care Teams Concrete Gun Operator Relationship Specialty Start Date End Date Leonor Bills DO [address] [place] [id number] PCP - General Family Medicine 03/04/25 documented as of this encounter
--- OUTSIDE RECORDS SUMMARY | 2025-04-05 17:46 | XMS_ITS | Clinical Summary ---
Author Organization [employer] Address [address] [facility] [address] [place] [address] Care Team Providers Care Shredded Filler Cigar Maker Machine Name Role Phone Leonor Bills DO Primary Care Provider Allergies No known active allergies Medications * This document contains information received from the source organization and may not represent a complete record from that organization. Suboxone 8-[address] FILM UNDER THE TONGUE ONCE DAILY 02/25/2025 Active cloNIDine (Catapres) 0.1 MG tablet Take 1 tablet (0.1 mg) by mouth if needed in the morning and at bedtime (anxiety). 60 tablet 1 04/05/2025 10:29 AM EST 03/04/2025 Active sertraline (Zoloft) 100 MG tablet Take 1 tablet (100 mg) by mouth Once per day. 30 tablet 1 04/05/2025 10:29 AM EST 03/04/2025 Active Active Problems Problem Noted Date Diagnosed Date Post-traumatic stress disorder 03/04/2025 Major depression, recurrent, chronic 03/04/2025 Generalized anxiety disorder 03/04/2025 Opioid dependence 03/04/2025 Tobacco dependence 03/04/2025 Encounters * This document contains information received from the source organization and may not represent a complete record from that organization. Date Type Department Care Team Description 03/25/[address] [facility] [address] [place] [address] Leonor Bills DO R/S APPT 03/25/[address] [facility] [address] [place], [place] [phone] Leonor Bills DO Appointment Request 03/23/[address] [facility] [address] [place], [place] [phone] Leonor Bills DO Chart Prep 03/04/2025 2:00 PM EDT Office Visit [facility] [address] [place] [address] Leonor Bills DO Post-traumatic stress disorder (Primary Dx); Major depression, recurrent, chronic (CMS/HCC); Generalized anxiety disorder; Elevated BP without diagnosis of hypertension 03/04/2025 Travel 03/02/[address] [facility] [address] [place] [address] Leticia Odom MD from Last 3 Months Immunizations Immunization Administration Dates Next Due DTaP, 5 pertussis antigens 10/10/2000,,09/15/1996,12/26,1995 HPV, Quadrivalent 03/15/2011,05/16/2010,03/13/20 10 Hep A, ped/adol, 2 dose 06/09/2013,03/11/2008 Hep B, Adolescent or Pediatric 1995,1995,1995 Hib (HbO) 04/07/1997, 7,1995,08/01 IPV 10/10/2000, 7,1995,08/01 Influenza, IIV3, injectable 03/11/2008, 7 Influenza, Injectable, MDCK, preservative free 01/02/2025 Influenza, Split (incl. tonja fied surface antigen) 06/09/2013 MMR 10/10/2000,09/15/1996 Meningococcal MCV4P [id number] 03/25/2007 Pfizer Covid-19 Vaccine 12+ 11/02/2020, 1 Td (adult), 5 Lf tetanus tox oid, preservative free, adsorbed 10/22/2011 Tdap 03/25/2007 Varicella 05/16/2010,01/11/1999 Social History Tobacco Use Types Packs/Day Years Used Date Smoking Tobacco: Former Cigarettes Smokeless Tobacco: Never Tobacco Cessation:Counseling Given: Not Answered Alcohol Use Standard Drinks/Week Comments Not Currently [...] Don't know 03/04/2025 12 :12 PM EDT Last Filed Vital Signs Vital Sign Reading Time Taken Comments Blood Pressure 140/94 03/04/2025 1:17 PM EDT Pulse 78 03/04/2025 12:55 PM EDT Temperature 36.6 C (97.9 F) 03/04/2025 12:55 PM EDT Respiratory Rate 20 03/04/2025 12:55 PM EDT Oxygen Saturation 98% 03/04/2025 12:55 PM EDT Inhaled Oxygen Concentration - - Weight 83.6 kg (184 lb 6.4 oz) 03/04/2025 12:55 PM EDT Height 170.2 cm (5' 7 ) 03/04/2025 12:55 PM EDT Body Mass Index 28.88 03/04/2025 12:55 PM EDT Plan of Treatment Health Maintenance Due Date Last Done Comments HIV Screening 1995 SDOH Screening 1995 Disability Screening 1995 Alcohol/Substance Use Screening 2007 Family Planning (PISQ) 2010 Hepatitis C Screening 2013 DTaP/Tdap/Td Vaccines (8 - Td or Tdap) 10/21/2021 10/22/2011, 03/25/2007, 10/10/2000, Additional history exists COVID-19 Vaccine ( season) 2025 11/02/2020, 10/12/2020 Depression Monitoring 09/05/2025 03/08/2025, 025 Tobacco Screening 03/04/2026 03/04/2025 Zoster Vaccines (1 of 2) 2045 RSV Patients and Patients Aged 60 years or older (1 - 1-dose 75+ series) 2070 Hepatitis B Vaccines Completed 1995, 1995, 1995 HIB Vaccines Completed 04/07/1997, 09/03, 1995, Additional history exists IPV Vaccines Completed 10/10/2000, 09/03, 1995, Additional history exists Meningococcal Vaccine Aged Out 03/25/2007 No maryjane tracy eligible based on patient's age to complete this topic HPV Vaccines Completed 03/15/2011, 05/06, 03/13/2010 Hepatitis A Vaccines Completed 06/09/2013, 03/11/20 08 Influenza Vaccine Completed 01/02/2025, , 03/11/2008, Additional history exists Meningococcal B Vaccine Aged Out No l onger eligible based on patient's age to complete this topic Pneumococcal Vaccine: Pediatrics (0 to 5 Years) and At-Risk Patients (6 to 49) Years Aged Out No longer eligible based on patient's age to complete this topic RSV under 20 months Aged Out No longe r eligible based on patient's age to complete this topic Rotavirus Vaccines Aged Out No longer eligible based on patient's age to complete this topic Insurance [facility] C3 Care Teams Shredded Filler Cigar Maker Machine Relationship Specialty Start Date End Date Leonor Bills DO [address] [place] [id number] PCP - General Family Medicine 03/04/25
== END 2025-04-05 14:52 | disposition home or self-care (01) ==
LOC: HO.HCC 14:27
PROVIDERS: Visit Provider Internal Medicine
DX: F11.21 Opioid dependence, in remission (principal)
CPT/HCPCS: 99213

== ENCOUNTER → 2025-04-05 14:26 | Outpatient (BNVA) | payer MEDICAID, SELFPAY | PROVIDERS: Visit Provider Internal Medicine | DX: F11.21 Opioid dependence, in remission (principal) | CPT/HCPCS: 99212 ==